=== PATIENT | male | born 1950 ===

== ENCOUNTER 2018-12-21 02:06 | Emergency (ER) | payer MEDICARE ==
[2018-12-21 02:24] VITALS: RESP 20; O2SAT 94
--- NOTE | 2018-12-21 02:33 | C.PDOC ---
History Of Present Illness 68 year old male presents to the ED complaining of left foot injury sustained prior to arrival status post tripping and falling in his house. he states he has has pain with walking on the foot. Upon triage, he had a fever that he was unaware of. he admits to having a cough but denies sob. Denies rash, nausea, rhinorrhea, vomiting, abdominal pain, chest pain, headache, LOC, head injury, dizziness, weakness, numbness, or any other complaints. <Shimon Jones - Last Filed: 12/21/18 06:22> <Shai Farris - Last Filed: 12/21/18 06:04> History Per: Patient History/Exam Limitations: no limitations Onset/Duration Of Symptoms: Hrs Current Symptoms Are (Timing): Still Present - Ankle/Foot Description Of Injury: Fell <Shimon Jones - Last Filed: 12/21/18 06:22> Time Seen by Provider: 12/21/18 02:24 Chief Complaint (Nursing): Lower Extremity Problem/Injury Past Medical History Vital Signs: Last Vital Signs Temp 99.1 F 12/21/18 04:31 Pulse 90 12/21/18 04:31 Resp 20 12/21/18 04:31 BP 139/90 12/21/18 04:31 Pulse Ox 94 L 12/21/18 04:31 <Shai Farris - Last Filed: 12/21/18 06:04> Vital Signs: Last Vital Signs Temp 101.5 F H 12/21/18 02:16 Pulse 114 H 12/21/18 02:16 Resp 20 12/21/18 02:16 BP 166/96 H 12/21/18 02:16 Pulse Ox 94 L 12/21/18 02:16 - Medical History PMH: Asthma, HTN Family History: States: Diabetes, Hypertension - Social History Hx Alcohol Use: No Hx Substance Use: No <Shimon Jones Last Filed: 12/21/18 06:22> Review Of Systems Constitutional: Positive for: Fever. Negative for: Chills ENT: Negative for: Ear Pain, Nose Congestion, Throat Pain Cardiovascular: Negative for: Chest Pain Respiratory: Negative for: Cough, Shortness of Breath Gastrointestinal: Negative for: Nausea, Vomiting, Abdominal Pain, Diarrhea <Shimon Jones Last Filed: 12/21/18 06:22> Physical Exam - Physical Exam Appears: Non-toxic, No Acute Distress Skin: Warm, Dry, Other (abrasion to right knee, no other signs of trauma to rest of body ) Head: Normacephalic Eye(s): bilateral: Normal Inspection Nose: Discharge (clear color discharge) Oral Mucosa: Moist Neck: Supple Chest: Symmetrical Cardiovascular: Rhythm Regular Respiratory: Normal Breath Sounds, No Rales, No Rhonchi, No Wheezing Gastrointestinal/Abdominal: Soft, No Tenderness Back: No CVA Tenderness Extremity: Tenderness (dorsal aspect of left foot, distally), No Deformity, S welling (mild swelling to left foot ), No Other (erythema, without increase heat ) Extremity: Bilateral: Normal Color And Temperature, Normal ROM Pulses: Left Dorsalis Pedis: Normal, Right Dorsalis Pedis: Normal Neurological/Psych: Oriented x3, Normal Speech Gait: Steady <Shimon Jones - Last Filed: 12/21/18 06:22> ED Course And Treatment - Laboratory Results Result Diagrams: 12/21/18 04:04 12/21/18 04:04 Lab Results: Urine Color Yellow (YELLOW) 12/21/18 04:04 Urine Clarity Clear (Clear) 12/21/18 04:04 Urine pH 5.0 (5.0-8.0) 12/21/18 04:04 Ur Specific [place] 1.025 (1.003-1.030) 12/21/18 04:04 Urine Protein Negative mg/dL (NEGATIVE) 12/21/18 04:04 Urine Glucose (UA) 1+ mg/dL (Normal) H 12/21/18 04:04 Urine Ketones Negative mg/dL (NEGATIVE) 12/21/18 04:04 Urine Blood 1+ (NEGATIVE) H 12/21/18 04:04 Urine Nitrate Negative (NEGATIVE) 12/21/18 04:04 Urine Bilirubin Negative (NEGATIVE) 12/21/18 04:04 Urine Urobilinogen Normal mg/dL (0.2-1.0) 12/21/18 04:04 Ur Leukocyte Esterase Neg Rosalina/uL (Negative) 12/21/18 04:04 Urine WBC (Auto) 1 /hpf (0-5) 12/21/18 04:04 Urine RBC (Auto) 6 /hpf (0-3) H 12/21/18 04:04 Ur Squamous Epith Cells < 1 /hpf (0-5) 12/21/18 04:04 Hyaline Casts 6-10 /lpf (0-2) H 12/21/18 04:04 Granular Casts (Auto) 4 /lpf (0-1) 12/21/18 04:04 - Radiology CXR: Interpreted by Me, Viewed By Me CXR Interpretation: Yes: No Acute Disease, Other (inc. BV markings, no infiltrate.). No: Infiltrates <Shai Farris - Last Filed: 12/21/18 06:04> - Laboratory Results Result Diagrams: 12/21/18 04:04 12/21/18 04:04 O2 Sat by Pulse Oximetry: 94 (RA) Pulse Ox Interpretation: Normal <Shimon Jones - Last Filed: 12/21/18 06:22> Medical Decision Making Medical Decision Making: Plan - Bloodwork - XR left foot - CXR - Ibuprofen 800mg PO - UA - Influenza A B - Tylenol 975mg PO he appears to have fever from URI. there does not appear to be a foot cellulitis at this time. he was has asthma and has been coughing. he has some increased lung markings on cxr. he will be given a z-paul for possible early pneumonia. <Shimon Jones - Last Filed: 12/21/18 06:22> Disposition <Shai Farris - Last Filed: 12/21/18 06:04> Counseled Patient/Family Regarding: Diagnosis, Need For Followup, Rx Given - Disposition Disposition Time: 05:17 <Shimon Jones - Last Filed: 12/21/18 06:22> - Disposition Referrals: [facility] [Outside] Disposition: HOME/ ROUTINE Condition: IMPROVED Prescriptions: Azithromycin [Z-Paul] 250 mg PO DAILY #6 tab Ibuprofen [Motrin Tab] 600 mg PO TID #21 tab Instructions: Viral Upper Respiratory Infection, Adult (DC), Foot Sprain (DC) Forms: [facility] (Macedonian), General Discharge Instructions - Clinical Impression Clinical Impression: Viral syndrome, Foot pain, left - PA / [employer] / Resident Statement MD/DO has reviewed & agrees with the documentation as recorded. - Scribe Statement The provider has reviewed the documentation as recorded by the Scribe Roxy Bell All medical record entries made by the Scribe were at my direction and personally dictated by me. I have reviewed the chart and agree that the record accurately reflects my personal performance of the history, physical exam, medical decision making, and the department course for this patient. I have also personally directed, reviewed, and agree with the discharge instructions and disposition. <Shimon Jones - Last Filed: 12/21/18 06:22>
[2018-12-21 04:15] LABS: GRANULAR CAST 4 /lpf (0-1); SQUAMOUS EPITHIAL < 1 /hpf (0-5); URINE BILIRUBIN NEGATIVE (NEGATIVE); URINE BLOOD 1+ (NEGATIVE); URINE CLARITY Clear (Clear); URINE COLOR Yellow (YELLOW); URINE GLUCOSE (UA) 1+ mg/dL (Normal); URINE LEUKOCYTE ESTERASE NEG Leu/uL (Negative); URINE PROTEIN NEGATIVE (NEGATIVE); URINE UROBILINOGEN NORMAL mg/dL (0.2-1.0)
[2018-12-21 04:19] LABS: BASO # 0.1 K/uL (0.0-0.2); BASO % 1.1 % (0.0-2.0); EOS # 0.1 K/uL (0.0-0.7); EOS % 0.6 % (0.0-4.0); HEMOGLOBIN 14.6 g/dL (12.0-18.0); LYMPH # 0.5 K/uL (1.0-4.3); LYMPH % 3.9 % (20.0-40.0); MEAN CELL VOLUME 85.9 fL (80.0-94.0); MEAN CORPUSCULAR HEMOGLOBIN 27.1 pg (27.0-31.0); MEAN CORPUSCULAR HGB CONC 31.5 g/dL (33.0-37.0); MEAN PLATELET VOLUME 10.1 fL (7.2-11.7); MONO # 0.8 K/uL (0.0-0.8); MONO % 6.1 % (0.0-10.0); NEUT # 12.2 K/uL (1.8-7.0); NEUT % 88.3 % (50.0-75.0); PLATELET COUNT 199 K/uL (130-400); RED CELL DISTRIBUTION WIDTH 15.3 % (11.5-14.5); WHITE BLOOD COUNT 13.9 K/uL (4.8-10.8)
[2018-12-21 04:21] LABS: BLOOD UREA NITROGEN 29 mg/dL (9-20); CALCIUM 8.7 mg/dl (8.6-10.4); GFR NON-AFRICAN AMERICAN > 60
[2018-12-21 04:34] VITALS: BP 139/90; PULSE 90; TEMP 99.1
[2018-12-21 05:09] LABS: ANISOCYTOSIS SLIGHT; BASOPHIL 1 % (0-2); EOSINOPHIL 1 % (0-4); LYMPHOCYTE 4 % (20-40); MONOCYTE 6 % (0-10); NEUTROPHIL 88 % (50-75); PLATELET ESTIMATE NORMAL (NORMAL); TOTAL CELLS COUNTED 100
--- NOTE | 2018-12-21 08:15 | RAD ---
Date of service: gordon 12/21/2018 PROCEDURE: Left Foot Radiographs. HISTORY: fracture COMPARISON: 02/22/2017 FINDINGS: BONES: A tiny juxtacortical ossification perhaps a tiny osseous chip and/or avulsion injury tibial side 3rd proximal phalanx noted. No significant change here appreciated. Correlate clinically. Horizontal radiolucencies concerning for 2nd metatarsal base fracture not seen as such on prior study.-difficult area to assess with plain radiographs. Consider MRI of the left foot mid-forefoot junction to further evaluate; location borders the Lisfranc joint JOINTS: As above SOFT TISSUES: Normal. OTHER FINDINGS: Hammertoe orientation IMPRESSION: Interval perceived radiolucency 2nd metatarsal base concerning for nondisplaced fracture here-as discussed above. Other findings as above. Comments: Study marked for PA review .
--- NOTE | 2018-12-21 09:27 | RAD ---
Date of service: 12/21/2018 HISTORY: pneumonia COMPARISON: 05/23/2012 TECHNIQUE: Chest PA and lateral FINDINGS: LUNGS: No definitive infiltrate on the frontal view noted. Bronchovascular markings left lung base probably top-normal. Probable tiny granulomas. Probable right nipple shadow over right lung base-this is difficult to appreciate on the prior study-techniques are different and the prior 2001 level inspiration was much less. No prior 2011 report available PLEURA: No pneumothorax apparent. Biapical pleural thickening Thin wedge-shaped opacity lateral view anterior base possibly fluid in a fissure and/or subsegmental atelectasis here correlation frontal view unclear. CARDIOVASCULAR: No aortic atherosclerotic calcification present. Thoracic ectasia. Normal cardiac size. No pulmonary vascular congestion. OSSEOUS STRUCTURES: Thoracic spondylosis VISUALIZED UPPER ABDOMEN: Bilateral shoulder arthrosis. Deformity of the lateral right clavicle compatible with old healed trauma of the same. No change here since 2011 OTHER FINDINGS: None. IMPRESSION: Fissural fluid/thickening and/or subsegmental atelectasis per lateral view anterior and inferior position. This appearance is not localized with certainty on the frontal view. No definitive air bronchograms to suggest a pulmonary infiltrate appreciated. Continued clinical follow-up advised. Other findings chronic appearing as above.
== END 2018-12-21 05:41 | disposition home or self-care (01) ==
LOC: C.ER 02:06
DX: B34.9 Viral infection, unspecified (principal); M79.672 Pain in left foot

== ENCOUNTER 2019-02-08 14:01 | Outpatient (CLI) | payer MEDICARE | END 2019-02-08 14:02 | disposition home or self-care (01) | LOC: C.CTH 14:01 ==